=== PATIENT | female | born 1960 | race Caucasian/White ===

== ENCOUNTER 2018-07-04 14:37 | Observation (INO) ==
--- NOTE | 2018-07-04 15:00 | ERNOTE ---
Chest Pain/Cardiac HPI Date of Service: 07/04/18 Chief Complaint: Chest Pain Time Seen by Provider: 07/04/18 14:58 Source: patient Exam Limitations: no limitations Immunizations: IMMUNIZATION HX Immunizations Up to Date Yes History of Influenza Vaccine No Hx Pneumococcal Vaccination No Allergies/Adverse Reactions: Allergies [facility] Reductase Inhibitor Adverse Reaction (Verified 07/04/18 14:47) Other "I just get ill" Home Medications: HOME MEDICATIONS DULoxetine HCL [Cymbalta] 60 mg PO DAILY 07/04/18 [Last Taken Unknown] LORazepam [Ativan] 0.5 mg PO TID PRN 07/04/18 [Last Taken Unknown] Lamotrigine [Lamictal] 150 mg PO BID 07/04/18 [Last Taken Unknown] Levothyroxine Sodium [Synthroid] 150 mcg PO DAILY 07/04/18 [Last Taken Unknown] Mirtazapine 30 mg PO DAILY 07/04/18 [Last Taken Unknown] QUEtiapine FUMARATE [Seroquel] 200 mg PO DAILY 07/04/18 [Last Taken Unknown] Pain Score #1 Pain Score: 6 Narrative: The patient is a 57 year old female who presents for left anterior chest pain which has been present for 1 hour. There are associated symptoms of fatigue, nausea and shortness of breath. The patient reports pain to left anterior chest, 6/10. There are no alleviating factors. There are no aggravating factors. Previous treatments have included: none. The past medical history includes: depression and hypothyroid. The social history is positive for current tobacco use. The patient has had no ill contacts. Patient reports resting with onset of pain. Patient states pain radiation straight through chest to back. Nitro Today/Relief: no nitro taken today Aspirin Treatment Today: no aspirin today Associated Symptoms: Present: cough, shortness of breath, nausea. Absent: headache, dizziness, diaphoresis, fever/chills, vomiting, abdominal pain Prior Chest Pain/Cardiac Workup: Reports: no prior cardiac workup Review of Systems - Review of Systems Constitutional: Present: fatigue. Absent: recent illness, fever EYE: Present: no symptoms reported ENT: Present: no symptoms reported. Absent: ear pain, nasal drainage, sore throat Respiratory: Present: shortness of breath, cough Cardiology: Present: chest pain Gastrointestinal/Abdominal: Present: nausea. Absent: vomiting, diarrhea, abdominal pain Genitourinary: Present: no symptoms reported. Absent: dysuria Musculoskeletal: Present: back pain Skin: Present: no symptoms reported. Absent: rash Neurological: Present: dizziness/light-headedness Endocrine: Present: no symptoms reported Hematologic/Lymphatic: Present: no symptoms reported Psych: Present: no symptoms reported All Other Systems: All systems neg except as marked Medical History (Last Reviewed 07/04/18 @ 15:08 by CORONA Gallagher) Depression Hypothyroid uterine ablation Surgical History: Surgical History (Last Reviewed 07/04/18 @ 15:08 by CORONA Gallagher) Previous back surgery Family History: Family History (Last Reviewed 07/04/18 @ 15:08 by CORONA Gallagher) Mother CHF (congestive heart failure) Grandmother CHF (congestive heart failure) Social History: Preferred Language Turkmen Smoking Status Light tobacco smoker Alcohol Use none Drug Use none No Social History Section defined Physical Exam - Physical Exam General Appearance: Present: wd/wn, alert, no apparent distress Head Exam: Present: normal inspection Eye Exam: Normal inspection: bilateral Neck: Present: normal inspection, nontender Respiratory: Present: no respiratory distress, normal breath sounds, no accessory muscle use, chest nontender, lungs clear Cardiovascular/Chest: Present: regular rate, rhythm, no murmur Gastrointestinal/Abdominal: Present: normal bowel sounds, nontender, nondistended, soft, no organomegaly Neurological Exam: Present: alert, oriented, normal mood/affect Skin Exam: Present: normal color, warm/dry Progress - Date and Time Seen: Date and Time: 07/04/18 16:32 Discussed case with , initial Trop normal along with EKG. Will admit patient for chest pain observation. 07/04/18 17:10 Patient was not started on a statin due to documented allergy. - Results and Orders Patient's Lab Results:: I have reviewed the patient's lab results. - Vital Signs Patient's Vital Signs:: I have reviewed the patient's vital signs. Vital Signs: Vital Signs 07/04/18 14:48 Temperature 36.5 C Pulse Rate 89 Respiratory Rate 16 Blood Pressure 135/97 H O2 Sat by Pulse Oximetry 98 - EKG EKG #1 EKG: NSR EKG read: Reviewed by me - X-Ray X-Ray #1 X-Ray: chest Interpretation: Reviewed by me X-ray Comments: No acute cardiopulmonary abnormalities. - Progress/Reassessment Chief Complaint: Chest Pain Departure Clinical Impression: Chest pain Qualifiers: Chest pain type: unspecified Qualified Code(s): R07.9 - Chest pain, unspecified - Departure Disposition: Still a patient Condition: Good
[2018-07-04] MEDS ORDERED: ASPIRIN 81 MG TAB.CHEW PO ONE (15:06)
[2018-07-04] MEDS ORDERED: NITROGLYCERIN 0.4 MG/TAB BTL SL ONE ×2 (15:06→15:50)
[2018-07-04 15:10] LABS: Hematocrit 43.2 % (37.0-47.0); Hemoglobin 13.7 gm/dL (12.5-16.0); Mean Corpuscular Hemoglobin 27.9 pg (27-31); Mean Corpuscular Hgb Conc 31.7 g/dl (32-36); Mean Platelet Volume 9.7 fl (8-12.5); Neutrophil # 4.4 K/mm3 (1.3-6.0); Neutrophil % 57.7 % (42-75.0); Platelet Count 250 K/mm3 (150-450); Red Blood Count 4.91 M/mm3 (4.2-5.4); Red Cell Distribution Width 14.1 % (11.5-14.0); White Blood Count 7.6 K/mm3 (4.0-10.5)
[2018-07-04 15:21] LABS: Prothrombin Time (Patient) 9.8 Seconds (9.1-10.7)
[2018-07-04 15:28] LABS: ALT 14 U/L (19-67); AST 11 U/L (0-48); Albumin * 3.7 gm/dl (3.4-5.0); Alkaline Phosphatase * 80 U/L (50-170); Anion Gap 10.8 mmol/L (6.8-13.8); BUN/Creatinine Ratio 24.3 (9.0-21.6); Bilirubin, Total 0.3 mg/dL (0.0-1.1); Blood Urea Nitrogen 25 mg/dL (3-23); Carbon Dioxide 31.3 mmol/L (24-32.6); Chloride 103 mmol/L (97-106); Glucose * 95 mg/dL (70-110); Potassium 4.1 mmol/L (3.4-4.6); Sodium 141 mmol/L (132-142); Total Protein 7.2 gm/dL (6.2-8.2); Troponin I Less than 0.017 ng/mL (0.00-0.10)
[2018-07-04 15:35] LABS: Ca. Corrected For Albumin 9.2 mg/dL (8.4-10.2); Calcium * 9.3 mg/dL (7.9-10.9)
[2018-07-04 16:28] LABS: INR 0.99 INR (0.92-1.08); Partial Thrombolplastin Time 24.7 Seconds (24-32)
[2018-07-04] MEDS ORDERED: LORazepam 0.5 MG TABLET PO PRN (18:56)
--- NOTE | 2018-07-04 19:00 | HP ---
Chief Complaint - Chief Complaint Date of Service: 07/04/18 Time of Service: 18:42 Chief Complaint: chest pain History of Present Illness: Patient with past medical history of hypothyroidism, bipolar disorder presents for left-sided chest discomfort which she describes as a squeezing. She has chronic sharp left anterior chest pain that catches her breath, but this felt different. She said she did feel a bit nauseated and short of breath. She has not had the symptoms in the past. Denies pulmonary issues. She is a previous smoker, but quit and now vapes. Medical History (Last Reviewed 07/04/18 @ 15:08 by CORONA Gallagher) Depression Hypothyroid uterine ablation Surgical History: Surgical History (Last Reviewed 07/04/18 @ 15:08 by CORONA Gallagher) Previous back surgery Family History: Family History (Last Reviewed 07/04/18 @ 15:08 by CORONA Gallagher) Mother CHF (congestive heart failure) Grandmother CHF (congestive heart failure) Social History: Preferred Language Azeri Do you have any latter day or No cultural preference? Smoking Status Light tobacco smoker Alcohol Use none Drug Use none No Social History Section defined Review Of Systems (GEN) - Review of Systems Generalized/Overall Review: Absent: Fever Respiratory: Present: Shortness of Breath - with the chest discomfort. Absent: Cough Cardiac: Present: Chest Pain - squeezing sensation. Absent: Syncope Abdominal: Present: Nausea - some nausea with the squeezing sensation Neurological: Present: Other - hx of bipolar disorder Immunizations: IMMUNIZATION HX Immunizations Up to Date Yes History of Influenza Vaccine No Hx Pneumococcal Vaccination No Allergies/Adverse Reactions: Allergies Allergy/AdvReac Type Severity Reaction Status Date / Time Dsnrfxl-Qow-Ish Reductase AdvReac Other Verified 07/04/18 14:47 Inhibitor Home Medications: HOME MEDICATIONS DULoxetine HCL [Cymbalta] 60 mg PO DAILY 07/04/18 [Last Taken Unknown] LORazepam [Ativan] 0.5 mg PO TID PRN 07/04/18 [Last Taken Unknown] Lamotrigine [Lamictal] 150 mg PO BID 07/04/18 [Last Taken Unknown] Levothyroxine Sodium [Synthroid] 150 mcg PO DAILY 07/04/18 [Last Taken Unknown] Mirtazapine 30 mg PO DAILY 07/04/18 [Last Taken Unknown] QUEtiapine FUMARATE [Seroquel] 200 mg PO DAILY 07/04/18 [Last Taken Unknown] Exam - Exam Vital Signs: Vital Signs - Last Taken Temp 36.5 C 07/04/18 14:48 Pulse 82 07/04/18 17:40 Resp 11 L 07/04/18 17:40 BP 117/79 07/04/18 17:40 Pulse Ox 100 07/04/18 17:40 Constitutional: Present: Alert, Oriented x3, Cooperative, Obese Respiratory: Present: normal breath sounds, no respiratory distress Cardiovascular/Chest: Present: regular rate, rhythm, no chest tenderness, no murmur Abdomen: Present: Normal bowel sounds, soft, nontender Extremity: Absent: lower extremity edema Neurologic: Present: normal mood/affect Diagnostic Studies: Abnormal Lab Results 07/04/18 07/04/18 Range/Units 15:03 15:03 MCHC 31.7 L (32-36) g/dl RDW 14.1 H (11.5-14.0) % BUN 25 H (3-23) mg/dL Est GFR (Non-Af Amer) 59 L (60-130) mL/min BUN/Creatinine Ratio 24.3 H (9.0-21.6) ALT 14 L (19-67) U/L Laboratory Results WBC 7.6 K/mm3 (4.0-10.5) 07/04/18 15:03 RBC 4.91 M/mm3 (4.2-5.4) 07/04/18 15:03 Hgb 13.7 gm/dL (12.5-16.0) 07/04/18 15:03 Hct 43.2 % (37.0-47.0) 07/04/18 15:03 MCV 88.0 fl (78-100) 07/04/18 15:03 MCH 27.9 pg (27-31) 07/04/18 15:03 MCHC 31.7 g/dl (32-36) L 07/04/18 15:03 RDW 14.1 % (11.5-14.0) H 07/04/18 15:03 Plt Count 250 K/mm3 (150-450) 07/04/18 15:03 MPV 9.7 fl (8-12.5) 07/04/18 15:03 Immature Gran % (Auto) 0.40 % (0.001-0.429) 07/04/18 15:03 Immature Gran # (Auto) 0.03 K/mm3 (0.000-0.0310) 07/04/18 15:03 Neutrophils % 57.7 % (42-75.0) 07/04/18 15:03 Lymphocytes % 32.2 % (20-51) 07/04/18 15:03 Monocytes % 7.2 % (0.0-9) 07/04/18 15:03 Eosinophils % 1.6 % (0.0-3.0) 07/04/18 15:03 Basophils % 0.9 % (0.0-1.0) 07/04/18 15:03 Nucleated RBC % 0.0 k/mm3 (0-1) 07/04/18 15:03 Neutrophils # 4.4 K/mm3 (1.3-6.0) 07/04/18 15:03 Lymphocytes # 2.46 k/mm3 (1.5-3.5) 07/04/18 15:03 Monocytes # 0.6 k/mm3 (0.0-1.0) 07/04/18 15:03 Eosinophils # 0.1 k/mm3 (0.0-0.7) 07/04/18 15:03 Absolute Basophils 0.1 k/mm3 (0.0-0.1) 07/04/18 15:03 PT 9.8 Seconds (9.1-10.7) 07/04/18 15:03 INR (Anticoag Therapy) 0.99 INR (0.92-1.08) 07/04/18 15:03 PTT ([place]) 24.7 Seconds (24-32) 07/04/18 15:03 D-Dimer 0.46 ug/mL (0.19-0.49) 07/04/18 15:03 Sodium 141 mmol/L (132-142) 07/04/18 15:03 Plasma Sodium 141 mmol/L (130-142) 07/04/18 15:03 Potassium 4.1 mmol/L (3.4-4.6) 07/04/18 15:03 Chloride 103 mmol/L (97-106) 07/04/18 15:03 Carbon Dioxide 31.3 mmol/L (24-32.6) 07/04/18 15:03 Anion Gap 10.8 mmol/L (6.8-13.8) 07/04/18 15:03 BUN 25 mg/dL (3-23) H 07/04/18 15:03 Creatinine 1.03 mg/dL (0.4-1.4) 07/04/18 15:03 Est GFR (Non-Af Amer) 59 mL/min (60-130) L 07/04/18 15:03 BUN/Creatinine Ratio 24.3 (9.0-21.6) H 07/04/18 15:03 Random Glucose 95 mg/dL (70-110) 07/04/18 15:03 Calcium 9.3 mg/dL (7.9-10.9) 07/04/18 15:03 Calcium Adj for Albumin 9.2 mg/dL (8.4-10.2) 07/04/18 15:03 Total Bilirubin 0.3 mg/dL (0.0-1.1) 07/04/18 15:03 AST 11 U/L (0-48) 07/04/18 15:03 ALT 14 U/L (19-67) L 07/04/18 15:03 Alkaline Phosphatase 80 U/L (50-170) 07/04/18 15:03 Troponin I Less than 0.017 ng/mL (0.00-0.10) 07/04/18 15:03 Total Protein 7.2 gm/dL (6.2-8.2) 07/04/18 15:03 Albumin 3.7 gm/dl (3.4-5.0) 07/04/18 15:03 Assessment/Plan - Assessment/Plan (1) Chest pain Assessment: Initial troponin negative, no EKG changes. Will trend overnight. If negative, can DC tomorrow with outpatient stress. She does have cardiac risk factors, including previous smoking history, obesity. She is allergic to statins. No history of reflux. Problem: Acute Qualifiers: Chest pain type: unspecified Qualified Code(s): R07.9 - Chest pain, unspecified (2) Hypothyroidism (acquired) Assessment: Continue 150 mcg levothyroxine. Problem: Acute (3) Bipolar disorder Assessment: Continue home Lamictal, Seroquel, duloxetine, as needed Ativan. Problem: Acute
[2018-07-04] MEDS: lamoTRIgine 100 MG TABLET PO SCH (20:42)
[2018-07-04] MEDS ORDERED: QUEtiapine FUMARATE 100 MG TABLET PO SCH (21:00)
[2018-07-05] MEDS ORDERED: LEVOTHYROXINE SODIUM 150 MCG TABLET PO SCH (07:00)
[2018-07-05] MEDS: lamoTRIgine 100 MG TABLET PO SCH (08:28)
--- NOTE | 2018-07-05 08:59 | DS ---
(1) Chest pain Problem: Resolved Qualifiers: Chest pain type: unspecified Qualified Code(s): R07.9 - Chest pain, unspecified (2) Hypothyroidism (acquired) Problem: Chronic (3) Bipolar disorder Problem: Chronic Description of Stay: Patient with past medical history of hypothyroidism, bipolar disorder presented for left-sided chest discomfort which she describes as a squeezing. She has chronic sharp left anterior chest pain that catches her breath, but this felt different. She said she did feel a bit nauseated and short of breath. She has not had the symptoms in the past. Denies pulmonary issues. She is a previous smoker, but quit and now vapes. She was admitted to monitor for signs of heart damage. Troponins were not elevated, and no changes in EKG. She did not have further episodes of the chest squeezing during her overnight stay. She felt comfortable leaving on the day of discharge. Will order outpatient stress test and have her follow-up with her PCP. Procedures Performed: none Results and Findings: Lab Pending Results 07/04/18 15:03: WBC 7.6, RBC 4.91, Hgb 13.7, Hct 43.2, MCV 88.0, MCH 27.9, MCHC 31.7 L, RDW 14.1 H, Plt Count 250, MPV 9.7, Immature Gran % (Auto) 0.40, Immature Gran # (Auto) 0.03, Neutrophils % 57.7, Lymphocytes % 32.2, Monocytes % 7.2, Eosinophils % 1.6, Basophils % 0.9, Nucleated RBC % 0.0, Neutrophils # 4.4, Lymphocytes # 2.46, Monocytes # 0.6, Eosinophils # 0.1, Absolute Basophils 0.1 07/04/18 15:03: PT 9.8, INR (Anticoag Therapy) 0.99, PTT ([place]) 24.7 07/04/18 15:03: Sodium 141, Plasma Sodium 141, Potassium 4.1, Chloride 103, Carbon Dioxide 31.3, Anion Gap 10.8, BUN 25 H, Creatinine 1.03, Est GFR (Non-Af Amer) 59 L, BUN/Creatinine Ratio 24.3 H, Random Glucose 95, Calcium 9.3, Calcium Adj for Albumin 9.2, Total Bilirubin 0.3, AST 11, ALT 14 L, Alkaline Phosphatase 80, Troponin I Less than 0.017, Total Protein 7.2, Albumin 3.7 07/04/18 15:03: D-Dimer 0.46 07/04/18 22:00: Troponin I Less than 0.017 Discharge Location: Home Disposition: Home self-care Condition: Good Discharge Activity: Activity as tolerated Discharge Diet: General/regular food Referrals: Kain Soler ARNP [Primary Care Provider] - Complete Home Medications List: Complete Home Medication List: DULoxetine HCL [Cymbalta] 60 mg PO DAILY 07/04/18 LORazepam [Ativan] 0.5 mg PO TID PRN 07/04/18 Lamotrigine [Lamictal] 150 mg PO BID 07/04/18 Levothyroxine Sodium [Synthroid] 150 mcg PO DAILY 07/04/18 Mirtazapine 30 mg PO DAILY 07/04/18 QUEtiapine FUMARATE [Seroquel] 200 mg PO DAILY 07/04/18 Amb Orders for Discharge: NUC Treadmill Stress Test Time Frame: 2 Weeks, Location: Radiology
[2018-07-05] MEDS ORDERED: DULoxetine HCL 30 MG CAPSULE.SA PO SCH (09:00)
[2018-07-05] MEDS ORDERED: MIRTAZAPINE 15 MG TABLET PO SCH (09:00)
[2018-07-05 09:31] VITALS: BP 95/62
== END 2018-07-05 10:05 | disposition home or self-care (01) ==
LOC: MS 14:37 → ER 14:37 → MS 17:40
PROVIDERS: ADMIT Family Medicine; ATTEND Family Medicine
CPT/HCPCS: 36415; 71020; 71046; 80053; 84484; 85025; 85379; 85610; 85730; 93005; 99285; G0378